=== PATIENT | female | born 1940 | race Caucasian/White ===

== ENCOUNTER 2017-11-22 23:43 | Emergency (ER) | payer MEDICARE ==
[~2017-11-22] VITALS: Ht 160 cm; Wt 84.0 kg
[~2017-11-22 23:43] MED LIST: ACET325 PO; ALBU17I INH; ALPR.25 PO; ASPI325T PO; CALC600T10 PO; CYCL-36 PO; FISH100020 PO; GLUCTAB PO; HYDR-3533 PO; IBUP800 PO; IMDU60TA PO; METO50TA PO; PRAV20 PO; PRIN20TA2 PO; VITA400C70 PO
[2017-11-22 23:52] VITALS: BP 169/77; PULSE 84; RESP 16; TEMP 98.2; O2SAT 95
--- NOTE | 2017-11-23 00:13 | PD ---
HPI Chief Complaint: Fall Time Seen by Provider: 23:59 Travel History International Travel<30 days: No Contact w/Intl Traveler<30days: No Traveled to known affect area: No History of Present Illness HPI 77 year-old female presents to the emergency department by private transportation for evaluation of left knee and hip pain. According the patient 5 hours ago around 7 PM she was at [employer] and she misstepped as she was placing something atelectasis with history and tripped and fell forward landing on her left knee. Patient subsequently has had left knee pain radiating to the left hip. Patient has been ambulatory with discomfort. Patient took ibuprofen one hour prior to arrival to the emergency department. Patient is noted some swelling to the knee. Patient's had previous injury to the left knee. Patient denies any numbness tingling of 11. Patient states she did not hit her head did not have loss of consciousness did not injure her neck did not injure her back did not injure her chest or abdomen. Patient denies other injury except to her left hip and left knee. Patient rates her pain as severe. Patient is applied no ice. Patient takes no blood thinning medications. Patient reports she is otherwise in good health. [facility] Past Medical History Narrative Medical Past medical history is significant for arthritis asthma dyslipidemia CVA CAD [place] with stent placement diabetes hypertension a laminectomy no tobacco use nursing notes reviewed Arthritis: Yes Asthma: Yes Blood Disorders: No Heart Rhythm Problems: No Cancer: Yes (LUNG /KIDNEY?) Cardiovascular Problems: Yes ([place],STENT) High Cholesterol: Yes Chemotherapy: No Chest Pain: No Congestive Heart Failure: No COPD: No Cerebrovascular Accident: Yes Coronary Artery Disease: Yes Diabetes: Yes Diminished Hearing: No Endocrine: Yes Gastrointestinal Disorders: No GERD: Yes Glaucoma: No Genitourinary: Yes Headaches: No Hepatitis: No Hiatal Hernia: No Hypertension: Yes Immune Disorder: No Kidney Stones: Yes Musculoskeletal: Yes (LOWER BACK PAIN) Neurologic: Yes (DIZZINESS) Psychiatric: No Respiratory: Yes (ASTHMA) Integumentary: No Myocardial Infarction: Yes Radiation Therapy: No Renal Failure: No Seizures: No Sleep Apnea: No Thyroid Disease: No Ulcer: No ?: Not Past Surgical History Abdominal Surgery: Yes (APPENDECTOMY) AICD: No Appendectomy: Yes Body Medical Devices: stent Cardiac Surgery: Yes (CARDIAC STENT PLACED 1998) Coronary Stent: Yes (1998) Ear Surgery: No Endocrine Surgery: No Eye Surgery: No Genitourinary Surgery: No Gynecologic Surgery: Yes (HYSTERECTOMY 1980) Hysterectomy: Yes Joint Replacement: No Neurologic Surgery: No Oral Surgery: No Pacemaker: No Thoracic Surgery: Yes (RIGHT UPPER LOBE REMOVED OCT 2014) Tonsillectomy: Yes Other Surgery: Yes (1957, 1945, 1980, 1998) Social History Alcohol Use: No Tobacco Use: No Substance Use: No Allergies-Medications (Allergen,Severity, Reaction): Coded Allergies: codeine (Unverified Allergy, Mild, Nausea/Vomiting, 11/22/17) Reported Meds & Prescriptions Reported Meds & Active Scripts Active Reported Vitamin E 100 Unit Tab 100 Units PO DAILY Magnesium Oxide 250 Mg Tab 250 Mg PO DIRECTED [place]-3 Fish Oil/Vitamin (Fish Oil-Cholecalciferol) 1,000-1,000 Mg Cap 1 Cap PO DAILY Metformin (Metformin HCl) 500 Mg Tab 500 Mg PO BIDPC Aspirin 325 Mg Tab 325 Mg PO DAILY Isosorbide Mononitrate ER (Isosorbide Mononitrate) 60 Mg Tab 60 Mg PO DAILY Metoprolol Tartrate 25 Mg Tab 25 Mg PO BID Lipitor (Atorvastatin Calcium) 10 Mg Tab 10 Mg PO HS Review of Systems Except as stated in HPI: all other systems reviewed are Neg Physical Exam Narrative GENERAL: Well-developed well-nourished elderly female in no acute distress no respiratory distress GCS 15 SKIN: Warm and dry. HEAD: Normocephalic. Atraumatic. EYES: No scleral icterus. No injection or drainage. Extraocular muscles intact. NECK: Supple, trachea midline. No JVD or lymphadenopathy. No midline tenderness to direct palpation along the cervical spine no bony step-off. CARDIOVASCULAR: Regular rate and rhythm without murmurs, gallops, or rubs. RESPIRATORY: Breath sounds equal bilaterally. No accessory muscle use. GASTROINTESTINAL: Abdomen soft, non-tender, nondistended. MUSCULOSKELETAL: No cyanosis, or edema. Left lower extremity pain with attempted hip flexion and knee flexion tenderness to palpation of the knee without abrasion or laceration distally extremity is neurovascular tendon intact with 2+ chest discloses. BACK: Nontender without obvious deformity. No CVA tenderness. Data Data Last Documented VS Vital Signs Date Time Temp Pulse Resp B/P (MAP) Pulse Ox O2 Delivery O2 Flow Rate FiO2 11/22/17 23:52 98.2 84 16 169/77 (107) 95 Orders Orders Knee, Complete (4vws) (11/23/17 ) Ice/Cold Pack (11/23/17 01:13) Hip, Uni(Ap&Lat) W Ap Pelvis (11/23/17 ) Splint Or Brace Apply/Monitor (11/23/17 02:12) Acetaminophen (Tylenol) (11/23/17 02:15) MDM Medical Decision Making Medical Screen Exam Complete: Yes Emergency Medical Condition: Yes Medical Record Reviewed: Yes Interpretation(s) hip/pelvis: No acute bony injury no fracture subluxation or dislocation identified as reviewed by me knee: No acute bony injury no fracture subluxation or dislocation identified as reviewed by me Differential Diagnosis Fall contusion sprain strain fracture subluxation dislocation Narrative Course Imaging studies ordered Imaging studies do not reveal any obvious dislocation subluxation or fracture Patient administered knee immobilizer and dose of acetaminophen Patient is encouraged to follow-up with primary care provider interviews knee immobilizer for joint support as well as continue to take as tolerated acetaminophen and/or ibuprofen per package directions. Patient also offered walker. Diagnosis Primary Impression: Pain of left knee after injury Additional Impression: Contusion of left hip, initial encounter Referrals: Primary Care Physician 2 days Patient Instructions: General Instructions Additional Instructions: Apply ice to affected areas intermittently for first 12-24 hours then moist heat for comfort May take acetaminophen/Tylenol every 4-6 hours as needed for pain or for fever 100.4F or greater May take ibuprofen/Advil/Motrin 600 mg as often as every 6 hours for pain associated with inflammation or for fever 100.4F or greater; may take up to maximum dose of 800 mg as often as every 8 hours no more frequently than this however avoid high-dose ibuprofen use for greater than one to 2 doses. Follow-up with primary care provider call office on Thursday to schedule follow- up appointment Return to the emergency department for any concerns or change in condition Wear knee immobilizer for joint support; recommend use of walker to assist with balance Med/Other Pt SpecificInfo: No Change to Meds Disposition: DISCHARGE HOME Condition: Stable Raquel Phan MD Nov 23, 2017 00:13
[2017-11-23] MEDS ORDERED: MAGN250T11 PO (00:35)
[2017-11-23] MEDS ORDERED: METF500T PO (00:35)
[2017-11-23] MEDS ORDERED: ASPI-183 PO (00:35)
[2017-11-23] MEDS ORDERED: OMEGCAP PO (00:35)
[2017-11-23] MEDS ORDERED: LIPI10TA PO (00:35)
[2017-11-23] MEDS ORDERED: VITA100T65 PO (00:35)
[2017-11-23] MEDS ORDERED: ISOS60TA PO (00:35)
[2017-11-23] MEDS ORDERED: METO25TA3 PO (00:35)
[2017-11-23] MEDS ORDERED: ACETAMINOPHEN 325 MG TAB PO ONE (02:15)
--- NOTE | 2017-11-23 02:18 | RADRPT ---
EXAM DATE/TIME: 11/23/2017 01:43 [facility] COMPARISON: No previous studies available for comparison. INDICATIONS : Patient complains of left hip pain status post fall. MEDICAL HISTORY : None. SURGICAL HISTORY : None. ENCOUNTER: Initial ACUITY: 2 days PAIN SCORE: 9/10 LOCATION: Left Hip FINDINGS: No definite fractures, or dislocations are identified. No definite lytic or sclerotic lesion is seen . Slight osteopenia is seen. CONCLUSION: Slight osteopenia and slight osteoarthritis in the left hip joint. Chivo Naidu MD on November 23, 2017 at 2:16 Board Certified Radiologist. This report was verified electronically.
--- NOTE | 2017-11-23 02:18 | RADRPT ---
EXAM DATE/TIME: 11/23/2017 01:43 [facility] COMPARISON: No previous studies available for comparison. INDICATIONS : Patient complains of left knee pain status post fall. MEDICAL HISTORY : None. SURGICAL HISTORY : None. ENCOUNTER: Initial ACUITY: 2 days PAIN SCORE: 10/10 LOCATION: Left Knee FINDINGS: No definite fractures, or dislocations are identified. No definite lytic or sclerotic lesion is seen . Slight osteopenia is seen. Small joint effusion is seen CONCLUSION: Slight osteopenia and small joint effusion. KLanre Naidu MD on November 23, 2017 at 2:15 Board Certified Radiologist. This report was verified electronically.
== END 2017-11-23 02:51 | disposition home or self-care (01) ==
LOC: PHED 23:43
DX: M25.562 Pain in left knee (principal); S70.02XA Contusion of left hip, initial encounter; M16.12 Unilateral primary osteoarthritis, left hip; E11.9 Type 2 diabetes mellitus without complications; I10 Essential (primary) hypertension; I25.10 Atherosclerotic heart disease of native coronary artery without angina pectoris; J45.909 Unspecified asthma, uncomplicated; W01.0XXA Fall on same level from slipping, tripping and stumbling without subsequent striking against object, initial encounter; Y92.22 Religious institution as the place of occurrence of the external cause
CPT/HCPCS: 73502; 73564; 99284; L1830